=== PATIENT | male | born 1980 | race Two or more races ===

== ENCOUNTER → 2020-04-06 | Emergency (ER) | payer OTHER ==
[~2020-04-06] VITALS: Ht 177.8 cm; Wt 113.4 kg
[~2020-04-06] MED LIST: DEPAKOTE ER250 MG; RISPERDAL2 MG
== END | disposition left against medical advice (07) ==
LOC: ER 14:35
DX: Z53.20 Procedure and treatment not carried out because of patient's decision for unspecified reasons (principal)